=== PATIENT | male | born 1975 ===

== ENCOUNTER 2023-04-07 07:45 | Emergency (ER) | payer OTHER ==
[2023-04-07] MEDS ORDERED: Orphenadrine Citrate 60 MG/2 ML VIAL ONE (08:12)
[2023-04-07] MEDS ORDERED: Morphine 4 MG/ML VIAL ONE (08:12)
[2023-04-07] MEDS ORDERED: Ketorolac Tromethamine 30 MG (1 mL) VIAL ONE (09:37)
== END 2023-04-07 09:46 | disposition home or self-care (01) ==
LOC: MADERS 07:45
DX: S16.1XXA Strain of muscle, fascia and tendon at neck level, initial encounter (principal); M17.11 Unilateral primary osteoarthritis, right knee; M19.011 Primary osteoarthritis, right shoulder; K04.7 Periapical abscess without sinus; E11.9 Type 2 diabetes mellitus without complications; E78.5 Hyperlipidemia, unspecified; I10 Essential (primary) hypertension; F17.210 Nicotine dependence, cigarettes, uncomplicated; Z79.899 Other long term (current) drug therapy; Z79.84 Long term (current) use of oral hypoglycemic drugs; V64.5XXA Driver of heavy transport vehicle injured in collision with heavy transport vehicle or bus in traffic accident, initial encounter
CPT/HCPCS: 70450; 72125; 72128; 94760; 96374; 96375; J1885; J2270; J2360